=== PATIENT | female | born 1980 | race Caucasian/White ===

== ENCOUNTER 2022-01-06 12:37 | Outpatient (CLI) | payer SELFPAY ==
[2022-01-06 13:28] LABS: Hemoglobin 15.4 g/dL (12.0-15.5); Mean Corpuscular HGB CONC 34.5 g/dL (32.0-36.0); Mean Corpuscular Hemoglobin 30.3 pg (27.0-33.0); Mean Corpuscular Volume 87.6 fl (81.6-98.3); Mean Platelet Volume 10.4 fl (7.4-10.4); Platelet Count 307 10x3/uL (150-450); RBC Distribution Width 11.9 % (11.5-14.5); Red Blood Cell (RBC) Count 5.09 10x6/uL (3.90-5.03); White Blood Cell (WBC) Count 7.7 10x3/uL (3.5-10.5)
[2022-01-06 13:33] LABS: BHCG - Serum Negative (NEGATIVE); Pregs Control Background? CLEAR/WHITE (CLR/WHITE); Pregs Control Bar Appear? YES (CONTROL BAR)
[2022-01-06 16:20] LABS: Bilirubin Neg (Negative); Blood, Urine Negative (Negative); Clarity Clear (Clear); Glucose, Urine (Dipstick) Normal (Negative); Ketone, Urine 5 mg/dL (Negative); Leukocyte Negative (Negative); Nitrite Negative (Negative); Protein, Urine (Dipstick) 15 mg/dl (Neg-Trace); Specific Gravity, Urine 1.015 (1.002-1.036); Urobilinogen Normal mg/dL (Less than 2)
== END 2022-01-06 12:38 | disposition home or self-care (01) ==
LOC: CSHLAB 12:37
PROVIDERS: ATTEND Obstetrics & Gynecology
DX: Z01.812 Encounter for preprocedural laboratory examination (principal); Z20.822 Contact with and (suspected) exposure to COVID-19
CPT/HCPCS: 81003; 84703; 85027; 87811

== ENCOUNTER 2022-01-08 05:34 | Day surgery (SDC) | payer OTHER ==
[2022-01-06 12:24] VITALS: BMI 25.6
[2022-01-08] MEDS ORDERED: Bupivacaine 0.25% HCL 30 ML VIAL ONE (06:17)
[2022-01-08] MEDS ORDERED: EPINEPHrine 1 MG/ML AMP ONE (06:18)
[2022-01-08] MEDS ORDERED: Methylene Blue 50 MG/10 ML AMPUL ONE (06:18)
[2022-01-08] MEDS ORDERED: CEFAZOLIN 2 GM VIAL ONE (06:55)
[2022-01-08] MEDS ORDERED: Lidocaine 1% PF 5 ML VIAL ONE (06:56)
[2022-01-08] MEDS ORDERED: PROPOFOL 20 ML ONE (06:56)
[2022-01-08] MEDS ORDERED: Dexamethasone 4 mg/ml Vial ONE (06:56)
[2022-01-08] MEDS ORDERED: Rocuronium Bromide 10 MG/ML (10ML VIAL) ONE (06:56)
[2022-01-08] MEDS ORDERED: Ondansetron PF 4 MG/2 ML Vial ONE (06:56)
[2022-01-08] MEDS ORDERED: SUGAMMADEX SODIUM 200 MG/2 ML VIAL ONE (06:57)
[2022-01-08] MEDS ORDERED: HYDROmorphone 0.5 MG/0.5 ML SYRINGE ONE (06:58)
[2022-01-08] MEDS ORDERED: Propofol 1,000 MG/100 ML VIAL IV ONE (06:58)
[2022-01-08] MEDS ORDERED: Scopolamine 1.5 mg/72 hour Patch ONE (07:10)
[2022-01-08] MEDS ORDERED: Fentanyl 100 MCG/2 ML VIAL ONE (09:14)
[2022-01-08] MEDS ORDERED: Meperidine HCl/PF 25 MG/ML VIAL ONE (10:08)
[2022-01-08 11:49] LABS: Hemoglobin 12.9 g/dL (12.0-15.5); Platelet Count 225 10x3/uL (150-450)
[2022-01-08] MEDS ORDERED: HYDROcodone/Acetaminophen 7.5/325 mg Tablet ONE ×2 (12:12→14:22)
== END 2022-01-08 14:50 | disposition home or self-care (01) ==
LOC: CSHSDC 05:34
PROVIDERS: ATTEND Obstetrics & Gynecology
PROC: 0UT94ZZ Resection of Uterus, Percutaneous Endoscopic Approach (ICD-10-PCS; principal; 2022-01-08)
PROC: 8E0W4CZ Robotic Assisted Procedure of Trunk Region, Percutaneous Endoscopic Approach (ICD-10-PCS; principal; 2022-01-08)
PROC: 0UT74ZZ Resection of Bilateral Fallopian Tubes, Percutaneous Endoscopic Approach (ICD-10-PCS; principal; 2022-01-08)
DX: N80.0 Endometriosis of uterus (principal); N80.2 Endometriosis of fallopian tube; N94.5 Secondary dysmenorrhea; N73.6 Female pelvic peritoneal adhesions (postinfective); N83.201 Unspecified ovarian cyst, right side; N83.202 Unspecified ovarian cyst, left side
CPT/HCPCS: 36415; 85014; 85018; 85049; 88307; C1776; J0171; J0690; J1100; J1170; J2175; J2405; J2704; J3010; Q9968; S0020